=== PATIENT | male | born 1970 | race African-American/Black ===

== ENCOUNTER 2022-10-20 03:05 | Inpatient (IN) | payer MEDICAID ==
[~2022-10-20] VITALS: Ht 193 cm; Wt 97.9 kg
[2022-10-20] VITALS (12 sets, daily range): BP systolic 137–165; BP diastolic 78–108
[2022-10-20] MEDS ORDERED: HEPARIN SODIUM (PORCINE) 5000 UNITS/ML 1ML VIAL IV ONE (03:15)
[2022-10-20] MEDS ORDERED: ONDANSETRON HCL 4 MG/2 ML VIAL IV ONE (03:30)
[2022-10-20] MEDS ORDERED: MORPHINE SULFATE 4 MG/ML SYR/VIAL IV ONE (03:30)
[2022-10-20 03:39] LABS: Basophils # (auto) 0 10 ^3/uL (0-0.2); Basophils % (auto) 0.6 % (0.0-2.0); Eosinophils # (auto) 0.1 10 ^3/uL (0-0.8); Hematocrit 37.8 % (41.0-53.0); Hemoglobin 12.9 g/dL (13.5-17.5); Lymphocytes # (auto) 1.6 10 ^3/uL (0.4-5.4); Lymphocytes % (auto) 41.7 % (10.0-50.0); Mean Corpuscular Hemoglobin 32.8 pg (28.0-32.0); Mean Corpuscular Hgb Conc. 34.2 g/dL (32.0-36.0); Mean Corpuscular Volume 95.7 fL (80.0-100.0); Monocytes # (auto) 0.4 10 ^3/uL (0-1.3); Monocytes % (auto) 9.8 % (0.0-12.0); Neutrophils # (auto) 1.8 10 ^3/uL (1.6-8.6); Neutrophils % (auto) 45.9 % (37.0-80.0); Nucleated Red Blood Cells % 0.1 %; Red Blood Cells 3.95 10^6/uL (4.5-5.90); Red Cell Distribution Width 13.2 % (11.8-14.3); White Blood Cell 3.9 10^3/uL (4.4-10.8)
[2022-10-20] MEDS ORDERED: ASPirin 81 mg TAB PO ONE (03:45)
[2022-10-20] MEDS ORDERED: ANGIOMAX 250 MG VIAL IV ONE (03:47)
[2022-10-20] MEDS ORDERED: HEPARIN SODIUM (PORCINE) 5000 UNITS/ML 1ML VIAL ONE (03:47)
[2022-10-20] MEDS ORDERED: fentaNYL CITRATE 100 MCG/2 ML VL ONE (03:47)
[2022-10-20] MEDS: VERAPAMIL 2.5MG/ML INJ 2ML VIAL IV ONE ×2 (03:47→04:07)
[2022-10-20 03:48] LABS: INR 0.97 (0.9-1.15); Partial Thromboplastin Time < 20.0 sec (24.6-33.4)
[2022-10-20] MEDS ORDERED: MIDAZOLAM HCL 2MG/2ML 2ml VIAL (1mg/ml) ONE (03:48)
[2022-10-20] MEDS ORDERED: SODIUM CHL 0.9% 50 ML ONE (03:48)
[2022-10-20] MEDS ORDERED: IODIXANOL 320MG/ML 100ML BTL IV ONE (03:48)
[2022-10-20] MEDS ORDERED: LIDOCAINE 2%HCL (LOCAL ANESTH.) INJ 20ML MDV ONE (03:52)
[2022-10-20 03:53] LABS: Albumin 3.4 g/dL (3.4-5.0); Calcium 8.7 mg/dL (8.5-10.1); Potassium 3.8 mmol/L (3.5-5.1)
[2022-10-20 03:57] LABS: Bilirubin, Total 0.3 mg/dL (0.2-1.0); Total Protein 6.8 g/dL (6.4-8.2)
[2022-10-20] MEDS ORDERED: LIDOCAINE 2%HCL (LOCAL ANESTH.) INJ 10ml MDV ONE (04:35)
[2022-10-20] MEDS ORDERED: NITROGLYCERIN 0.4 MG SL TAB SL PRN (04:45)
[2022-10-20] MEDS: MORPHINE SULFATE INJ 2 MG/ml SYRG IV PRN ×2 (07:45→22:29)
[2022-10-20] MEDS ORDERED: NITROGLYCERIN 0.4 MG SL TAB SL ONE (10:00)
[2022-10-20] MEDS: LISINOPRIL 5 MG TAB PO SCH ×2 (10:28→22:15)
[2022-10-20] MEDS: CARVEDILOL 3.125 MG TAB PO SCH ×2 (10:28→22:14)
[2022-10-20 14:48] LABS: Cholesterol 139 mg/dL (< 200); HDL Cholesterol 85 mg/dL (40-59); LDL Cholesterol 48 mg/dL (< 100); Triglycerides 39 mg/dL (< 150)
[2022-10-20] MEDS ORDERED: CARB200T4 PO (15:21)
[2022-10-20] MEDS ORDERED: PHEN32.44 PO (15:21)
[2022-10-20] MEDS: PHENobarbital 32.4 MG TAB PO SCH (15:46)
[2022-10-20] MEDS: carBAMazepine 200 MG TAB PO SCH (15:46)
[2022-10-21 05:06] VITALS: BP 128/75
[2022-10-21 08:20] VITALS: BP 133/77
[2022-10-21 09:00] VITALS: BP 133/77
[2022-10-21] MEDS: PHENobarbital 32.4 MG TAB PO SCH (10:48)
[2022-10-21] MEDS: carBAMazepine 200 MG TAB PO SCH (10:49)
[2022-10-21] MEDS: CARVEDILOL 3.125 MG TAB PO SCH ×2 (10:50→22:11)
[2022-10-21] MEDS: LISINOPRIL 5 MG TAB PO SCH ×2 (10:50→22:11)
[2022-10-21 13:00] VITALS: BP 136/89
[2022-10-21 17:00] VITALS: BP 127/65
[2022-10-21 22:00] VITALS: BP 119/69
[2022-10-21] MEDS: MORPHINE SULFATE INJ 2 MG/ml SYRG IV PRN (23:22)
[2022-10-22] VITALS (8 sets, daily range): BP systolic 113–139; BP diastolic 67–92
[2022-10-22] MEDS: MORPHINE SULFATE INJ 2 MG/ml SYRG IV PRN (08:51)
[2022-10-22] MEDS: CARVEDILOL 3.125 MG TAB PO SCH ×2 (09:01→21:54)
[2022-10-22] MEDS: carBAMazepine 200 MG TAB PO SCH (09:01)
[2022-10-22] MEDS: PHENobarbital 32.4 MG TAB PO SCH (09:02)
[2022-10-22] MEDS: LISINOPRIL 5 MG TAB PO SCH ×2 (09:02→21:54)
[2022-10-22] MEDS ORDERED: MORPHINE SULFATE INJ 2 MG/ml SYRG IV ONE ×2 (13:45→19:00)
[2022-10-22] MEDS ORDERED: MORPHINE SULFATE 4 MG/ML SYR/VIAL IV ONE (13:45)
[2022-10-23 14:40] LABS: Hepatitis C Antibody Negative (Negative)
== END 2022-10-22 23:15 | disposition home or self-care (01) | DRG 190 ==
LOC: EDBD 03:05 → ER 03:05 → TELE 04:38 → TELE-WESTW 05:40
PROVIDERS: ADMIT Specialist; ATTEND Family Medicine
PROC: 4A023N8 Measurement of Cardiac Sampling and Pressure, Bilateral, Percutaneous Approach (ICD-10-PCS; principal; 2022-10-20)
PROC: B211YZZ Fluoroscopy of Multiple Coronary Arteries using Other Contrast (ICD-10-PCS; 2022-10-20)
PROC: B215YZZ Fluoroscopy of Left Heart using Other Contrast (ICD-10-PCS; 2022-10-20)
PROC: B41FYZZ Fluoroscopy of Right Lower Extremity Arteries using Other Contrast (ICD-10-PCS; 2022-10-20)
DX: I21.19 ST elevation (STEMI) myocardial infarction involving other coronary artery of inferior wall (principal); I42.0 Dilated cardiomyopathy; R56.9 Unspecified convulsions; I10 Essential (primary) hypertension; F43.10 Post-traumatic stress disorder, unspecified; Z88.0 Allergy status to penicillin; Z20.822 Contact with and (suspected) exposure to COVID-19
CPT/HCPCS: 36415; 71045; 80053; 80061; 80320; 83735; 84484; 85025; 85610; 85730; 86803; 86850; 86900; 86901; 87340; 87426; 93005; 93306; 96374; 96375; 99152; 99153; 99291; C1751; G0378; J2001; J2250; J2405; Q9967